=== PATIENT | female | born 1985 | race Caucasian/White ===

== ENCOUNTER 2018-02-09 13:52 | Emergency (ER) | payer SELFPAY ==
[~2018-02-09] VITALS: Ht 185.4 cm; Wt 95.0 kg
[2018-02-09] MEDS ORDERED: ONDANSETRON 2MG/ML, 2ML ONE (14:52)
[2018-02-09] MEDS ORDERED: MAALOX/HYOSCYAMINE/LIDOCAINE 45 ML BTL ONE (14:52)
[2018-02-09] MEDS ORDERED: FAMOTIDINE 20 MG/2 ML ONE (14:52)
[2018-02-09] MEDS ORDERED: DICYCLOMINE 10 MG/ML, 2ML ONE (14:52)
[2018-02-09] MEDS ORDERED: FAMOTIDINE 20 MG/2 ML IVP ONE (15:00)
[2018-02-09] MEDS ORDERED: SODIUM CHLORIDE FLUSH 10ML SYR IVF ONE (15:00)
[2018-02-09] MEDS ORDERED: MAALOX/HYOSCYAMINE/LIDOCAINE 45 ML BTL PO ONE (15:00)
[2018-02-09] MEDS ORDERED: DICYCLOMINE 10 MG/ML, 2ML IM ONE (15:00)
[2018-02-09] MEDS ORDERED: ONDANSETRON 2MG/ML, 2ML IVPush ONE (15:00)
[2018-02-09 15:12] LABS: MICROSCOPIC INDICATED
[2018-02-09 15:12] LABS: BASOPHILS # (AUTO) 0.01 x10^3/uL (0-0.1); BASOPHILS % (AUTO) 0 % (0-1); EOSINOPHILS # (AUTO) 0.13 x10^3/uL (0-0.4); EOSINOPHILS % (AUTO) 1 % (1-7); LYMPHOCYTES # (AUTO) 0.95 x10^3/uL (1-3.4); LYMPHOCYTES % (AUTO) 9 % (22-44); MD NO; MEAN CORPUSCULAR HEMOGLOBIN 27.6 pg (27.0-34.8); MEAN CORPUSCULAR HGB CONC 32.4 g/dL (32.4-35.8); MEAN CORPUSCULAR VOLUME 85.3 fL (80-100); MEAN PLATELET VOLUME 6.9 fL (7.4-10.4); MONOCYTES # (AUTO) 0.63 x10^3/uL (0.2-0.8); MONOCYTES % (AUTO) 6 % (2-9); NEUTROPHILS # (AUTO) 9.02 x10^3/uL (1.8-6.8); NEUTROPHILS % (AUTO) 84 % (42-75); PLATELET COUNT 329 x10^3/uL (130-400); RED BLOOD COUNT 5.02 x10^6/uL (3.82-5.3); RED CELL DISTRIBUTION WIDTH 15.1 % (9.6-15.2)
[2018-02-09 15:19] LABS: ALANINE AMINOTRANSFERASE 18 U/L (12-78); ALBUMIN 3.2 g/dL (3.4-5.0); ANION GAP 7 mmol/L (5-15); CALCIUM 8.3 mg/dL (8.5-10.1); CHLORIDE 105 mmol/L (98-107); CREATININE 0.77 mg/dL (0.55-1.02)
[2018-02-09 15:24] LABS: ALKALINE PHOSPHATASE 56 U/L (45-117); BILIRUBIN,TOTAL 0.2 mg/dL (0.2-1.0); TOTAL PROTEIN 7.5 g/dL (6.4-8.2)
[2018-02-09 15:29] LABS: CULTURE INDICATED? YES
[2018-02-09] MEDS ORDERED: CEFTRIAXONE 1,000 MG IM ONE (16:30)
[2018-02-09] MEDS ORDERED: CEFTRIAXONE 1,000 MG ONE (16:35)
[2018-02-09 16:53] VITALS: BP 135/85
== END 2018-02-09 16:55 | disposition home or self-care (01) ==
LOC: ED 14:57
DX: N30.90 Cystitis, unspecified without hematuria (principal); R11.2 Nausea with vomiting, unspecified; R19.7 Diarrhea, unspecified
CPT/HCPCS: 36415; 80053; 81001; 83690; 84703; 85025; 87086; 96372; 96374; 96375; 99284; J0500; J0696; J2405; S0028

== ENCOUNTER 2019-04-30 01:04 | Emergency (ER) | payer SELFPAY ==
[~2019-04-30] VITALS: Ht 185.4 cm; Wt 94.8 kg
[2019-04-30] MEDS ORDERED: MORPHINE SULFATE 4 MG/ML, 1ML ONE (01:27)
[2019-04-30] MEDS ORDERED: MORPHINE SULFATE 4 MG/ML, 1ML IVPush PRN (01:30)
[2019-04-30] MEDS ORDERED: SODIUM CHLORIDE FLUSH 10ML SYR IVF ONE (01:30)
--- NOTE | 2019-04-30 01:35 | NUR ---
FIRST CONTACT WITH PT. PT C/O LEFT SIDED DENTAL PAIN TIMES TWO DAYS. PT'S AOX4. RESPS EVEN AND UNLABORED. BP/SPO2 MONITORS IN PLACE. CALL LIGHT WITHIN REACH.
[2019-04-30 01:36] LABS: BASOPHILS # (AUTO) 0.04 x10^3/uL (0-0.1); BASOPHILS % (AUTO) 1 % (0-1); EOSINOPHILS # (AUTO) 0.16 x10^3/uL (0-0.4); EOSINOPHILS % (AUTO) 3 % (1-7); LYMPHOCYTES # (AUTO) 1.44 x10^3/uL (1-3.4); LYMPHOCYTES % (AUTO) 22 % (22-44); MD NO; MEAN CORPUSCULAR HEMOGLOBIN 29.3 pg (27.0-34.8); MEAN CORPUSCULAR HGB CONC 32.1 g/dL (32.4-35.8); MEAN CORPUSCULAR VOLUME 91.4 fL (80-100); MEAN PLATELET VOLUME 6.8 fL (7.4-10.4); MONOCYTES # (AUTO) 0.54 x10^3/uL (0.2-0.8); MONOCYTES % (AUTO) 8 % (2-9); NEUTROPHILS # (AUTO) 4.26 x10^3/uL (1.8-6.8); NEUTROPHILS % (AUTO) 66 % (42-75); PLATELET COUNT 330 x10^3/uL (130-400); RED BLOOD COUNT 4.48 x10^6/uL (3.82-5.3); RED CELL DISTRIBUTION WIDTH 14.5 % (9.6-15.2)
--- NOTE | 2019-04-30 01:37 | NUR ---
PT MEDICATED PER EMAR FOR PAIN. PT TOLERATED WELL.
[2019-04-30 01:45] LABS: ALBUMIN 3.2 g/dL (3.4-5.0); ANION GAP 4 mmol/L (5-15); CALCIUM 8.8 mg/dL (8.5-10.1); CHLORIDE 107 mmol/L (98-107)
[2019-04-30] MEDS ORDERED: CEFTRIAXONE PMX 1GM/50ML 50 ML ONE (01:47)
--- NOTE | 2019-04-30 01:53 | NUR ---
abx infusing at this time. pt's aox4. resps even and unlabored.
[2019-04-30] MEDS ORDERED: CEFTRIAXONE PMX 1GM/50ML 50 ML IVPB ONE (02:00)
[2019-04-30] MEDS ORDERED: OMNIPAQUE 350 MG/ML, 100ML BOTTLE ONE (02:00)
[2019-04-30 03:27] VITALS: BP 107/62
--- NOTE | 2019-04-30 03:40 | NUR ---
pt given dc instructions and scripts. pt educated regarding dc medications. pt's aox4. resps even and unlabored. no acute distress at dc.
== END 2019-04-30 03:42 | disposition home or self-care (01) ==
LOC: ED 03:34
DX: K04.7 Periapical abscess without sinus (principal); F17.200 Nicotine dependence, unspecified, uncomplicated; Z72.9 Problem related to lifestyle, unspecified
CPT/HCPCS: 36415; 70487; 80048; 82040; 85025; 96365; 96375; 99284; J0696; J2270; Q9967

== ENCOUNTER 2020-10-04 13:50 | Emergency (ER) | payer MEDICAID ==
[~2020-10-04] VITALS: Ht 188 cm; Wt 95.8 kg
--- NOTE | 2020-10-04 16:53 | NUR ---
CUSTOMER SERVICES SUPERVISOR: PT TO [facility] FROM [facility]
--- NOTE | 2020-10-04 16:53 | NUR ---
WALKED TO STRETCHER. BLEEDING CONTRLD, NO LAC. BRUISING TO MIDDLE R FINGER. XR IN LOBBY. AWAITING .
[2020-10-04] MEDS ORDERED: NEOSPORIN OINT. PKT 1 PACKET ONE (17:20)
--- NOTE | 2020-10-04 17:35 | NUR ---
Patient given discharge instructions and they have confirmed that they understand the instructions. Patient ambulatory with steady gait. SPLINT AND SUPPLIES APPLIED, PT NAD, DENIES ADDITIONAL NEEDS OR QUESTIONS AT THIS TIME. NO PERSONAL BELONGINGS NOTED LEFT BEHIND AFTER DC.
[2020-10-04 17:37] VITALS: BP 115/78
== END 2020-10-04 17:51 | disposition home or self-care (01) ==
LOC: ED 17:20
DX: S62.662A Nondisplaced fracture of distal phalanx of right middle finger, initial encounter for closed fracture (principal); F17.290 Nicotine dependence, other tobacco product, uncomplicated; W22.8XXA Striking against or struck by other objects, initial encounter; Y93.89 Activity, other specified; Y92.89 Other specified places as the place of occurrence of the external cause; Y99.8 Other external cause status
CPT/HCPCS: 29125; 99283; 99406

== ENCOUNTER 2021-04-16 19:51 | Emergency (ER) | payer MEDICAID ==
[~2021-04-16] VITALS: Ht 188 cm; Wt 90.0 kg
[2021-04-16 19:58] VITALS: BP 126/82
[2021-04-16] MEDS ORDERED: LIDOCAINE 1%, 10ML INFIL ONE (20:30)
[2021-04-16] MEDS ORDERED: BUPIVACAINE/PF 0.25% INFIL ONE (20:30)
[2021-04-16] MEDS ORDERED: LIDOCAINE-MPF 1%, 5ML ONE (22:28)
[2021-04-16] MEDS ORDERED: BUPIVACAINE 0.25% ONE (22:28)
== END 2021-04-16 23:24 | disposition home or self-care (01) ==
LOC: ED 22:51
DX: K04.7 Periapical abscess without sinus (principal); K02.9 Dental caries, unspecified; Z72.9 Problem related to lifestyle, unspecified; F17.210 Nicotine dependence, cigarettes, uncomplicated
CPT/HCPCS: 41800; 99406